=== PATIENT | female | born 1980 | race African-American/Black ===

== ENCOUNTER 2024-06-09 09:35 | Emergency (ER) | payer BC ==
[~2024-06-09] VITALS: Ht 170.2 cm; Wt 72.2 kg
[2024-06-09 09:36] VITALS: O2SAT 100
[2024-06-09] MEDS ORDERED: SULF1TAB49 PO (09:54)
[2024-06-09] MEDS: LIDOcaine 1% W/epiNEPHrine 1:100,000 20ml vial IJ ONE (10:16)
[2024-06-09 10:31] VITALS: BP 126/74; PULSE 68; RESP 18; TEMP 97.6
== END 2024-06-09 10:33 | disposition home or self-care (01) ==
LOC: ER 09:35
DX: N76.4 Abscess of vulva (principal)
CPT/HCPCS: 56405; 99283; 99284